=== PATIENT | female | born 2000 | race Caucasian/White ===

== ENCOUNTER 2021-06-14 12:48 | Inpatient (IN) | payer BC ==
--- OUTSIDE RECORDS SUMMARY | 2021-06-14 12:51 | XMS REPORT | Continuity of Care Document ---
:2000 Author Organization [facility] t Address [address] [place] [address] Care Team Providers Name Role Phone Pcp, Does Not Have A Primary Care Physician YADIRA Attending Clinician Unavailable Yadira ALVARENGA Attending Clinician Doctor Unassigned, Name Attending Clinician Unavailable Payers Payer Name Policy Type Policy Number Effective Date Expiration Date S ource Problems Condition Condition Condition Status Onset Resolution Last Treating Co mments Source Name Details Category Date Date Treatment Clinician Date No known No known Disease Unive rs active active ity of problems problems [facility] Allergies, Adverse Reactions, Alerts Allergy Allergy Status Severity Reaction(s) Onset Inactive Treating Comm ents Source Name Type Date Date Clinician Metronid Propensi Active Unknown - Uni vers azole ty to See comments -05 ity of adverse 00:00: [place] reaction 00 Medical s Branch Drospire Propensi Active Unknown - Uni vers none-Eth ty to See comments 01-16 it y of inyl adverse 00:00: [place] Estradio reaction 00 Medica l l s Branch METRONID DRUG Active Unknown-Cmnt 0 Un nehal AZOLE INGREDI 7-05 ity of 00:00: [place] 00 Medical Branch DROSPIRE DRUG Active Unknown-Cmnt 0 Un nehal NONE-ETH 7-05 ity of INYL 00:00: [place] ESTRADIO 00 Medical L Branch NO KNOWN Drug Active Univers ALLERGIE Class ity of S [facility] Social History Social Habit Start Date Stop Date Quantity Comments Source Exposure to Not sure [facility] SARS-CoV-2 (event) Medica l Branch Tobacco use and 2021-05-01 2021-05-01 Never used [facility] [place] exposure 00:00:00 00:00:00 Medical Branch Sex Assigned At 2000 2000 [facility] 00:00:00 00:00:00 Medical Branch Smoking Status Start Date Stop Date Source Never smoker [facility] Branch Medications Ordered Filled Start Stop Current Ordering Indication Dosage Frequency Signature Comments Components Source Medication Medication Date Date Medication? Clinician (SIG) Name Name MATA Yes Univer s 3-0.02 mg 8-26 ity of per tablet 00:00: [place] [facility] MATA, Yes Univer s 3-0.02 mg 8-26 ity of per tablet 00:00: [place] [facility] MATA, Yes Univer s 3-0.02 mg 8-26 ity of per tablet 00:00: [place] [facility] Vital Signs Vital Name Observation Time Observation Value Comments Source Systolic blood 2021-05-01 15:11:00 110 mm[facility]Hg] [facility] Diastolic blood 2021-05-01 15:11:00 73 [facility]Hg[facility] Heart rate 2021-05-01 15:11:00 79 /min [facility] Body weight 2021-05-01 15:11:00 67.132 kg [facility] Oxygen saturation 2021-05-01 15:11:00 99 /min [facility] in Arterial blood Medical Br anch by Pulse oximetry Procedures Procedure Date / Time Performing Clinician Source Performed AUTHORIZATION TO RELEASE 2021-05-01 05:01:00 Doctor Unassigned, No [facility] PHI TO [facility] Name Medical Branch Encounters Start End Encounter Admission Attending Care Care Encounter Source Date/Time Date/Time Type Type Clinicians Facility Department ID 2021-10-30 2021-10-30 Outpatient YADIRA ALCANDICE [facility] [id number] Univers 09:30:00 09:30:00 [facility] [id number] [facility] 2021-05-01 2021-05-01 Office Yadira [facility] [id number] Univers 10:00:34 11:24:57 Visit [facility] [id number] [facility] [place] [id number] [place] [id number] Al reza [address] Medical Office Building 2021-05-01 2021-05-01 Outpatient R YADIRA [facility] [id number] Univers 10:00:00 10:00:00 [facility] [id number] [facility] 2021-05-01 2021-05-01 [id number] Univers 10:00:00 10:00:00 [facility] 2021-05-01 2021-05-01 [facility] [id number] Univers 10:00:00 10:00:00 [facility] 2021-05-01 2021-05-01 Orders Doctor PORRAS [id number] Univers 00:00:00 00:00:00 Only Unassigned, ENDY [id number] [facility] [id number] [place] [id number] [address] 2021-01-16 2021-01-16 Outpatient R [facility] [id number] Univers 15:30:00 15:30:00 [id number] [facility] 2021-01-16 2021-01-16 [facility] [id number] Univers 14:30:00 14:30:00 [facility] Results This patient has no known results.
[2021-06-14 15:24] LABS: Urine Blood 2+ (Negative); Urine Glucose Negative (Negative); Urine Protein 3+ (Negative); Urine Specific Gravity >=1.030 (1.005-1.030); Urine pH 5.5 (5.0-7.0)
[2021-06-14 15:36] LABS: Urine Specific Gravity/Preg >1.030 (1.005-1.030)
[2021-06-14] MEDS ORDERED: NA CHLORIDE 0.9% 0 ML ONE (16:01)
[2021-06-14] MEDS ORDERED: NA CHLORIDE 0.9% 2,000 ML ONE (16:02)
[2021-06-14] MEDS ORDERED: CEFTRIAXONE 1000 MG/VIAL ONE (16:03)
[2021-06-14 16:37] LABS: Basophils % 0.4 % (0-1.3); Lymphocytes % 11.2 % (15.3-44.8); MPV 8.9 fL (7.6-11.3)
[2021-06-14 16:54] LABS: Albumin 3.1 g/dL (3.4-5.0); Bilirubin Total 0.4 mg/dL (0.2-1.0); Potassium 3.8 mmol/L (3.5-5.1); Protein, Total 8.1 g/dL (6.4-8.2)
--- NOTE | 2021-06-14 16:57 | RAD REPORT ---
EXAM DESCRIPTION: CT - Abdomen Pelvis W Contrast - 06/14/2021 4:47 pm CLINICAL HISTORY: Abdominal pain COMPARISON: 2015 TECHNIQUE: Computed axial tomography of the abdomen pelvis was obtained. 100 cc Isovue-300 was admin istered intravenously. Oral contrast was not requested which limits evaluation of bowel. All CT scans are performed using dose optimization technique as appropriate and may include automated exposure control or mA/KV adjustment according to patient size. FINDINGS: The liver, spleen, pancreas, adrenal and right kidney appear unremarkable. A 3.3 centimeter low to intermediate density mass is present within the mid to lower pole of the left kidney. Several smaller low-density areas are present within the left kidney extending to the periph jesus. These are compatible with infection. There is no evidence of diverticulitis. No adnexal mass. Normal appendix IMPRESSION: Moderate pyelonephritis left kidney. 3.3 centimeter lobar nephronia left kidney
--- NOTE | 2021-06-14 16:57 | RAD REPORT ---
EXAM DESCRIPTION: Kaleigh Avendaño (2 Views)06/14/2021 4:07 pm CLINICAL HISTORY: Cough COMPARISON: 2016 FINDINGS: The lungs appear clear of acute infiltrate. The heart is normal size IMPRESSION: No acute abnormalities displayed
[2021-06-14 17:37] LABS: SARS-COV-2 RT PCR NEGATIVE (NEGATIVE)
--- NOTE | 2021-06-14 17:39 | ER ---
Nurse's Notes [facility] Name: Leanne Fairchild Age: 20 yrs Sex: Female : 2000 Arrival Date: 06/14/2021 Time: 12:52 Bed 7 Private MD: Diagnosis: Pyelonephritis acute-left NEPHRONIA;Fever, unspecified Presentation: 06/14 14:07 Chief complaint: Patient states: N/V/D with L sided abd pain since S[place]. Fever up to ss 100.1 at home. Coronavirus screen: Vaccine status: Client denies travel out of the [place] in the last 14 days. diarrhea, fatigue, fever, nausea, vomiting. Client presents with at least one sign or symptom that may indicate coronavirus-19. Standard/surgical mask placed on the client. Ebola Screen: Patient denies travel to an Ebola-affected area in the 21 days before illness onset. Initial Sepsis Screen: Does the patient meet any 2 criteria? HR > 90 bpm. No. Patient's initial sepsis screen is negative. Does the patient have a suspected source of infection? Yes: Acute abdominal pain. Risk Assessment: Do you want to hurt yourself or someone else? Patient reports no desire to harm self or others. Onset of symptoms was June 11, 2021. 14:07 Method Of Arrival: Ambulatory ss 14:07 Acuity: JAQUELINE 3 ss Triage Assessment: 15:10 General: Appears in no apparent distress. uncomfortable, Behavior is cooperative, bp appropriate for age, anxious. Pain: Complains of pain in left upper quadrant and left lower quadrant. EENT: No deficits noted. Neuro: Neuro: Level of Consciousness is awake, alert, obeys commands, Oriented to Appropriate for age. Cardiovascular: Rhythm is sinus tachycardia. Respiratory: No deficits noted. GI: Reports lower abdominal pain, diarrhea, nausea, vomiting. : No signs and/or symptoms were reported regarding the genitourinary system. Derm: No deficits noted. Musculoskeletal: No deficits noted. Historical: - Allergies: 14:09 Flagyl; ss 14:09 Solu-Medrol; ss - PMHx: 14:09 thyroid problem; ss - PSHx: 14:09 None; ss - Immunization history:: Adult Immunizations up to date. - Social history:: Smoking status: . Screenin:16 Abuse screen: Denies threats or abuse. Nutritional screening: No deficits noted. tw2 Tuberculosis screening: No symptoms or risk factors identified. Fall Risk None identified. Assessment: 15:10 General: SEE TRIAGE NOTE. bp 15:10 GI: Abdomen is non-distended, Reports diarrhea, nausea, vomiting. bp 17:30 Reassessment: No changes from previously documented assessment. Patient and/or family bp updated on plan of care and expected duration. Pain level reassessed. ADMIT INITIATED. 18:30 Reassessment: No changes from previously documented assessment. Patient and/or family bp updated on plan of care and expected duration. Pain level reassessed. HOSPITALIST AT B/S. Vital Signs: 14:07 BP 119 / 70; Pulse 117; Resp 16; Temp 98.6; Pulse Ox 100% ; Weight 58.97 kg; Height 5 ss ft. 2 in. (157.48 cm); Pain 9/10; 16:27 BP 111 / 73; Pulse 106; Resp 17; Pulse Ox 100% on R/A; tw2 18:30 BP 100 / 71; Pulse 100; Resp 17; Pulse Ox 100% ; bp 14:07 Body Mass Index 23.78 (58.97 kg, 157.48 cm) ss [place] Coma Score: 15:39 Eye Response: spontaneous(4). Verbal Response: oriented(5). Motor Response: obeys sil commands(6). Total: 15. ED Course: 12:52 Patient arrived in ED. as 14:09 Triage completed. ss 14:09 Arm band placed on Patient notified of wait time. ss 15:13 Yuriy Cox, RN is Primary Nurse. bp 15:16 Son Larios MD is Attending Physician. sil 15:29 Patient has correct armband on for positive identification. Bed in low position. Call bp light in reach. Side rails up X2. 16:02 Chest Pa And Lat (2 Views) XRAY Sent. bp 16:07 Chest Pa And Lat (2 Views) XRAY In Process Unspecified. EDMS 16:35 Inserted saline lock: 20 gauge in right antecubital area, using aseptic technique. bp Blood collected. 16:47 CT Abd/Pelvis - IV Contrast Only In Process Unspecified. EDMS 17:38 Larissa Lr MD is Hospitalizing Provider. sil 19:21 No provider procedures requiring assistance completed. Patient admitted, IV remains in bp place. Administered Medications: 15:40 Drug: NS 0.9% 1000 ml Route: IV; Rate: 1 bolus; Site: right antecubital; bp 18:40 Follow up: IV Status: Completed infusion; IV Intake: 1000ml bp 15:40 Drug: Rocephin (cefTRIAXone) 1 grams Route: IV; Rate: per protocol; Site: right bp antecubital; 18:41 Follow up: IV Status: Completed infusion; IV Intake: 100ml bp 15:45 Drug: NS 0.9% 1000 ml Route: IV; Rate: 1 bolus; Site: right antecubital; bp 18:40 Follow up: IV Status: Completed infusion; IV Intake: 1000ml bp 17:50 Drug: Rocephin (cefTRIAXone) 1 grams Route: IV; Rate: per protocol; Site: right bp antecubital; 18:41 Follow up: IV Status: Completed infusion; IV Intake: 100ml bp 18:00 Drug: levofloxacin 750 mg Volume: 150 ml; Route: IVPB; Infused Over: 90 mins; Site: bp right antecubital; 19:21 Follow up: IV Status: Completed infusion; IV Intake: 150ml bp Intake: 18:40 IV: 1000ml; Total: 1000ml. bp 18:40 IV: 1000ml; Total: 2000ml. bp 18:41 IV: 100ml; Total: 2100ml. bp 18:41 IV: 100ml; Total: 2200ml. bp 19:21 IV: 150ml; Total: 2350ml. bp Outcome: 17:39 Decision to Hospitalize by Provider. sil 19:20 Admitted to Med/surg accompanied by tech, via wheelchair, room 404, with chart, Report bp called to JORGE DIOP 19:20 Condition: stable 19:20 Instructed on the need for admit. 20:52 Patient left the ED. df1 Signatures: Dispatcher [employer] EDMS Son Larios MD MD cha Martinez, Amelia as Smirch, Shelby, RN RN ss Karoline Tao RN RN tw2 Yuriy Cox RN RN Alejandra Martins df1 Corrections: (The following items were deleted from the chart) 15:29 14:10 General: Appears in no apparent distress. uncomfortable, Behavior is cooperative, bp appropriate for age, anxious, bp 15:29 14:10 Pain: Complains of pain in left upper quadrant and left lower quadrant bp bp 15:29 14:10 EENT: No deficits noted. bp bp 15:29 14:10 Neuro: bp bp 15:29 14:10 Cardiovascular: Rhythm is sinus tachycardia bp bp 15:29 14:10 Respiratory: No deficits noted. bp bp 15:29 14:10 GI: Reports lower abdominal pain, diarrhea, nausea, vomiting, bp bp 15:29 14:10 : No signs and/or symptoms were reported regarding the genitourinary system. bp bp 15:29 14:10 Derm: No deficits noted. bp bp 15:29 14:10 Musculoskeletal: No deficits noted. bp bp 16:49 16:48 Inserted saline lock: 20 gauge in right antecubital area, using aseptic bp technique. Blood collected. bp
--- NOTE | 2021-06-14 17:40 | EDPHYS ---
Physician Documentation [facility] Name: Leanne Fairchild Age: 20 yrs Sex: Female : 2000 Arrival Date: 06/14/2021 Time: 12:52 Bed 7 Private MD: ED Physician Son Larios HPI: 06/14 15:36 This 20 yrs old Female presents to ER via Ambulatory with complaints of sil Fever, Nausea/Vomiting/Diarrhea. 15:36 The patient reports fever, that was measured at 102 degrees Fahrenheit. Onset: The sil symptoms/episode began/occurred 3 day(s) ago. Modifying factors: there are no obvious modifying factors. Associated signs and symptoms: Pertinent positives: chills, cough. Severity of symptoms: At their worst the symptoms were moderate in the emergency department the symptoms are unchanged. The patient has not experienced similar symptoms in the past. Historical: - Allergies: 14:09 Flagyl; ss 14:09 Solu-Medrol; ss - PMHx: 14:09 thyroid problem; ss - PSHx: 14:09 None; ss - Immunization history:: Adult Immunizations up to date. - Social history:: Smoking status: . ROS: 15:37 Constitutional: Negative for fever, chills, and weight loss, Eyes: Negative for injury, sil pain, redness, and discharge, ENT: Negative for injury, pain, and discharge, Neck: Negative for injury, pain, and swelling, Cardiovascular: Negative for chest pain, palpitations, and edema, Respiratory: Negative for shortness of breath, cough, wheezing, and pleuritic chest pain, : Negative for injury, bleeding, discharge, and swelling, MS/Extremity: Negative for injury and deformity, Skin: Negative for injury, rash, and discoloration, Neuro: Negative for headache, weakness, numbness, tingling, and seizure, Psych: Negative for depression, anxiety, suicide ideation, homicidal ideation, and hallucinations, Allergy/Immunology: Negative for hives, rash, and allergies, Endocrine: Negative for neck swelling, polydipsia, polyuria, polyphagia, and marked weight changes, Hematologic/Lymphatic: Negative for swollen nodes, abnormal bleeding, and unusual bruising. 15:37 Abdomen/GI: Positive for abdominal pain, of the posterior aspect of left lateral abdomen, anterior aspect of left lateral abdomen, left upper quadrant and left lower quadrant. 15:37 Back: Positive for flank pain, on the left. Exam: 15:37 Constitutional: This is a well developed, well nourished patient who is awake, alert, sil and in no acute distress. Head/Face: Normocephalic, atraumatic. Eyes: Pupils equal round and reactive to light, extra-ocular motions intact. Lids and lashes normal. Conjunctiva and sclera are non-icteric and not injected. Cornea within normal limits. Periorbital areas with no swelling, redness, or edema. ENT: Nares patent. No nasal discharge, no septal abnormalities noted. Tympanic membranes are normal and external auditory canals are clear. Oropharynx with no redness, swelling, or masses, exudates, or evidence of obstruction, uvula midline. Mucous membranes moist. Neck: Trachea midline, no thyromegaly or masses palpated, and no cervical lymphadenopathy. Supple, full range of motion without nuchal rigidity, or vertebral point tenderness. No Meningismus. Chest/axilla: Normal chest wall appearance and motion. Nontender with no deformity. No lesions are appreciated. Cardiovascular: Regular rate and rhythm with a normal S1 and S2. No gallops, murmurs, or rubs. Normal PMI, no JVD. No pulse deficits. Respiratory: Lungs have equal breath sounds bilaterally, clear to auscultation and percussion. No rales, rhonchi or wheezes noted. No increased work of breathing, no retractions or nasal flaring. Skin: Warm, dry with normal turgor. Normal color with no rashes, no lesions, and no evidence of cellulitis. MS/ Extremity: Pulses equal, no cyanosis. Neurovascular intact. Full, normal range of motion. Neuro: Awake and alert, GCS 15, oriented to person, place, time, and situation. Cranial nerves II-XII grossly intact. Motor strength 5/5 in all extremities. Sensory grossly intact. Cerebellar exam normal. Normal gait. Psych: Awake, alert, with orientation to person, place and time. Behavior, mood, and affect are within normal limits. 15:37 Abdomen/GI: Inspection: abdomen appears normal, Bowel sounds: normal, Palpation: moderate abdominal tenderness, in the posterior aspect of left lateral abdomen, anterior aspect of left lateral abdomen, left upper quadrant and left lower quadrant, Liver: no appreciated palpable abnormalities, Hernia: not appreciated. Vital Signs: 14:07 BP 119 / 70; Pulse 117; Resp 16; Temp 98.6; Pulse Ox 100% ; Weight 58.97 kg; Height 5 ss ft. 2 in. (157.48 cm); Pain 9/10; 16:27 BP 111 / 73; Pulse 106; Resp 17; Pulse Ox 100% on R/A; tw2 18:30 BP 100 / 71; Pulse 100; Resp 17; Pulse Ox 100% ; bp 14:07 Body Mass Index 23.78 (58.97 kg, 157.48 cm) ss [place] Coma Score: 15:39 Eye Response: spontaneous(4). Verbal Response: oriented(5). Motor Response: obeys [facility] commands(6). Total: 15. MDM: 15:16 Patient medically screened. sil 15:39 Differential diagnosis: nephrolithiasis, pyelonephritis, UTI, diverticulitis, sil pancreatitis, viral Infection, bacterial infection, URI, bronchitis, pneumonia UTI, gastroenteritis, meningitis, otitis. Data reviewed: vital signs, nurses notes, lab test result(s), radiologic studies, CT scan, plain films. Data interpreted: nuclear monitoring technician: rate is 117 beats/min, rhythm is regular, Pulse oximetry: on room air is 100 %. Test interpretation: by ED physician or midlevel provider: plain radiologic studies. Counseling: I had a detailed discussion with the patient and/or guardian regarding: the historical points, exam findings, and any diagnostic results supporting the discharge/admit diagnosis, lab results, radiology results, the need for outpatient follow up, for definitive care, a family practitioner. 06/14 15:24 Order name: Urine Dipstick-Ancillary; Complete Time: 15:28 [facility] 06/14 15:25 Order name: Urine --Ancillary (enter results); Complete Time: 16:14 bd 06/14 15:33 Order name: CBC with Diff; Complete Time: 17:35 [facility] 06/14 15:33 Order name: Comprehensive Metabolic Panel; Complete Time: 17:35 [facility] 06/14 15:33 Order name: Blood Culture Adult (2) [facility] 06/14 15:33 Order name: Chest Pa And Lat (2 Views) XRAY; Complete Time: 17:35 [facility] 06/14 15:33 Order name: CT Abd/Pelvis - IV Contrast Only; Complete Time: 17:35 sil 06/14 16:56 Order name: COVID-19/FLU A+B/RSV EDMS Administered Medications: 15:40 Drug: NS 0.9% 1000 ml Route: IV; Rate: 1 bolus; Site: right antecubital; bp 18:40 Follow up: IV Status: Completed infusion; IV Intake: 1000ml bp 15:40 Drug: Rocephin (cefTRIAXone) 1 grams Route: IV; Rate: per protocol; Site: right bp antecubital; 18:41 Follow up: IV Status: Completed infusion; IV Intake: 100ml bp 15:45 Drug: NS 0.9% 1000 ml Route: IV; Rate: 1 bolus; Site: right antecubital; bp 18:40 Follow up: IV Status: Completed infusion; IV Intake: 1000ml bp 17:50 Drug: Rocephin (cefTRIAXone) 1 grams Route: IV; Rate: per protocol; Site: right bp antecubital; 18:41 Follow up: IV Status: Completed infusion; IV Intake: 100ml bp 18:00 Drug: levofloxacin 750 mg Volume: 150 ml; Route: IVPB; Infused Over: 90 mins; Site: bp right antecubital; 19:21 Follow up: IV Status: Completed infusion; IV Intake: 150ml bp Disposition Summary: 06/14/21 17:39 Hospitalization Ordered Hospitalization Status: Inpatient Admission sil Provider: Larissa Lr cha [facility] sil Condition: Fair sil Problem: new sil Symptoms: have improved sil Bed/Room Type: Standard [facility] Room Assignment: 404(06/14/21 19:16) eb1 Diagnosis - Pyelonephritis acute - left NEPHRONIA sil - Fever, unspecified sil Discharge Instructions: - Fever, Adult sil - Pyelonephritis, Adult sil - Pyelonephritis, Adult, Uscj-bx-Ulhs sil - Weakness sil - Weakness, Msmc-ox-Tvxo sil - Fever, Adult, Ncka-fh-Pust sil - Discharge Summary Sheet tw2 Forms: - Work release form tw2 - Medication Reconciliation Form sil - SBAR form [facility] Prescriptions: - Ibuprofen 600 mg Oral Tablet - take 1 tablet by ORAL route every 6 hours As needed take with food; 20 tablet; [facility] Refills: 0, Product Selection Permitted - Zofran 4 mg Oral Tablet - take 1 tablet by ORAL route every 12 hours As needed; 20 tablet; Refills: 0, isl Product Selection Permitted - Cipro 500 mg Oral Tablet - take 1 tablet by ORAL route every 12 hours for 7 days; 14 tablet; Refills: 0, sil Product Selection Permitted Signatures: Dispatcher [employer] EDSon Stark, Asha Lala MD, cha, RN RN Karoline Chavez, RN RN tw2 Yuriy Cox RN Leanne Cardoso RN RN eb1 Corrections: (The following items were deleted from the chart) 16:56 15:33 Influenza Screen (A \T\ B)+BA.LAB.BRZ ordered. EDMS EDMS 16:56 15:33 SARS-COV-2 RT PCR+MOL.LAB.BRZ ordered. EDMS EDMS 16:56 15:38 Respiratory Syncytial Virus Ag+BA.LAB.BRZ ordered. EDMS EDMS 19:16 17:39 sil eb1
--- NOTE | 2021-06-14 20:00 | P.HP ---
Certification for Inpatient Patient admitted to: Inpatient With expected LOS: <2 Midnights Patient will require the following post-hospital care: None Practitioner: I am a practitioner with admitting privileges, knowledge of patient current condition, hospital course, and medical plan of care. Services: Services provided to patient in accordance with Admission requirements found in Title 42 Section 412.3 of the Code of Federal Regulations Patient History Date of Service: 06/14/21 Primary Care Provider: Zulay Reason for admission: pyelonephritis History of Present Illness: Ms. Fairchild is a 20 yo F who presents with 9/10 left abdominal and flank pain beginning on Saturday. She reports fever, anorexia, decreased, fluid intake, nausea, vomiting, and diarrhea. Reports foul smelling urine for approximately 1 month. She says she holds her urine overnight because she doesn't want to get up to go the bathroom. Denies dysuria, hematuria, frequency, urgency. Na 132 AST 118 ALT 92 UA - 2+ ketones, 2+ blood, nitrite + CT AP IMPRESSION: Moderate pyelonephritis left kidney. 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 - Social History Smoking Status: Never smoker Alcohol use: No CD- Drugs: No Caffeine use: No Place of Residence: Home Review of Systems 10-point ROS is otherwise unremarkable General: Fever, Chills, Sweats, Malaise, As per HPI Eyes: Unremarkable ENT: Unremarkable Respiratory: Cough Cardiovascular: Unremarkable Gastrointestinal: Nausea, Vomiting, Abdominal Pain, Diarrhea, As per HPI Genitourinary: Unremarkable Musculoskeletal: Unremarkable Integumentary: Unremarkable Neurological: Unremarkable Lymphatics: Unremarkable Physical Examination - Physical Exam General: Alert, In no apparent distress HEENT: Atraumatic, PERRLA, Mucous membr. moist/pink, EOMI, Sclerae nonicteric Neck: Supple, 2+ carotid pulse no bruit, No LAD, Without JVD or thyroid abnormal ity Respiratory: Clear to auscultation bilaterally, Normal air movement Cardiovascular: Regular rate/rhythm (tachycardic), Normal S1 S2 Gastrointestinal: Normal bowel sounds, Tenderness Musculoskeletal: No tenderness Integumentary: No rashes Neurological: Normal speech, Normal strength at 5/5 x4 extr, Normal tone, Normal affect Lymphatics: No axilla or inguinal lymphadenopathy - Studies Laboratory Data (last 24 hrs) 06/14/21 16:20: Sodium 132 L, Potassium 3.8, BUN 8, Creatinine 0.89, Glucose 114 H, Total Bilirubin 0.4, AST 118 H, ALT 92 H, Alkaline Phosphatase 73 06/14/21 16:20: WBC 9.30, Hgb 13.5, Hct 38.0, Plt Count 156 Assessment and Plan - Problems (Diagnosis) (1) Pyelonephritis Current Visit: Yes Status: Acute (2) Dehydration Current Visit: Yes Status: Acute - Plan continue IV ceftriaxone every 12 hours continue IVF hydration advance diet as tolerated urine microscopy, urine culture, blood culture pending DVT ppx Discharge Plan: Home Plan to discharge in: 48 Hours - Advance Directives Does patient have a Living Will: No Does patient have a Durable POA for Healthcare: No - Code Status/Comfort Care Code Status Assessed: Yes (full code ) Critical Care: No Time Spent Managing Pts Care (In Minutes): 70
[2021-06-14 20:58] VITALS: O2SAT 100
[2021-06-14 22:09] VITALS: BMI 23.8
[2021-06-14] MEDS ORDERED: ACETAMINOPHEN 500 MG TAB PO PRN (22:17)
[2021-06-14] MEDS ORDERED: ONDANSETRON 4 MG/2 ML VIAL IV PRN (22:17)
[2021-06-14] MEDS ORDERED: MORPHINE 2 MG/ML SYR IV PRN (22:17)
[2021-06-14] MEDS: NA CHLORIDE 0.9% 1,000 ML IV SCH (22:17)
[2021-06-15] MEDS: NA CHLORIDE 0.9% 1,000 ML IV SCH ×3 (02:04→23:29)
[2021-06-15 03:25] LABS: Urine Appearance CLEAR (Clear); Urine Bilirubin NEGATIVE (Negative); Urine Blood 2+ (Negative); Urine Color YELLOW (Yellow); Urine Glucose NEGATIVE (Negative); Urine Protein 1+ (Negative); Urine Specific Gravity 1.015 (1.005-1.030); Urine Urobilinogen 0.2 mg/dL (0.2-1.0); Urine pH 6.5 (5.0-7.0)
[2021-06-15 03:26] LABS: Urine Microscopic Reflex ORDER UMIC
[2021-06-15 03:42] LABS: Absolute Lymphocytes (CBC) 1.3 K/uL (0.7-4.9); Basophils % 0.4 % (0-1.3); Hematocrit 32.9 % (36.0-45.0); Lymphocytes % 18.2 % (15.3-44.8); RBC Red Blood Cell Count 3.86 M/uL (3.86-4.86)
[2021-06-15 03:51] LABS: Urine Bacteria <20 /HPF (<20); Urine RBC <5 /HPF (NONE SEEN); Urine Urothelial Cells <5 /HPF (NONE SEEN)
[2021-06-15 04:14] LABS: ALT/SGPT 62 U/L (12-78); AST/SGOT 59 U/L (15-37); Albumin 2.3 g/dL (3.4-5.0); Alkaline Phosphatase 56 U/L (45-117); BUN Blood Urea Nitrogen 8 mg/dL (7-18); Bicarbonate 22 mmol/L (21-32); Bilirubin Total 0.3 mg/dL (0.2-1.0); Glucose Level 98 mg/dL (74-106); Magnesium 2.1 mg/dL (1.8-2.4); Phosphorus 1.6 mg/dL (2.5-4.9); Potassium 3.8 mmol/L (3.5-5.1); Protein, Total 6.4 g/dL (6.4-8.2); Sodium Level 134 mmol/L (136-145)
[2021-06-15] MEDS ORDERED: POTASSIUM 25 MEQ EFFERV TAB PO ONE (04:47)
[2021-06-15 07:11] LABS: Blood Morphology Comment NOT SEEN (NOT SEEN); Platelet Estimate ADEQ
[2021-06-15] MEDS ORDERED: CEFTRIAXONE 1000 MG/VIAL ONE ×2 (08:27→19:11)
[2021-06-15] MEDS ORDERED: NA CHLORIDE 0.9% 50 ML ONE ×2 (08:30→19:25)
[2021-06-15] MEDS: CEFTRIAXONE 1,000 MG in NA CHLORIDE 0.9% 50 ML IVPB SCH ×2 (08:51→20:08)
[2021-06-15] MEDS: POTASS/SODIUM PHOSPHATE 1 PKT POWD.PACK PO SCH ×2 (08:51→09:34)
[2021-06-15] MEDS: ENOXAPARIN 40 MG/0.4 ML SQ SCH (08:52)
--- NOTE | 2021-06-15 08:57 | P.PN ---
Subjective Date of Service: 06/15/21 Review of Systems 10-point ROS is otherwise unremarkable Physical Examination - Vital Signs Temperature: 98.4 F Blood Pressure: 107/66 Pulse: 102 Respirations: 16 Pulse Ox (%): 97 - Physical Exam General: Alert, In no apparent distress, Oriented x3 HEENT: Atraumatic, PERRLA, EOMI Neck: Supple, JVD not distended Respiratory: Clear to auscultation bilaterally, Normal air movement Cardiovascular: Regular rate/rhythm, Normal S1 S2 Gastrointestinal: Normal bowel sounds, Soft and benign, Non-distended, Tenderness (Left flank tenderness) Musculoskeletal: No clubbing, No swelling, No tenderness Integumentary: No rashes Neurological: Normal speech, Normal tone, Normal affect Lymphatics: No axilla or inguinal lymphadenopathy - Studies Laboratory Data (last 24 hrs) 06/14/21 16:20: Sodium 132 L, Potassium 3.8, BUN 8, Creatinine 0.89, Glucose 114 H, Total Bilirubin 0.4, AST 118 H, ALT 92 H, Alkaline Phosphatase 73 06/14/21 16:20: WBC 9.30, Hgb 13.5, Hct 38.0, Plt Count 156 Medications List Reviewed: Yes Assessment & Plan - Problems (Diagnosis) (1) Pyelonephritis of left kidney Current Visit: Yes Status: Acute - Plan 1. Continue with IV hydration 2. Continue with IV antibiotics 3. Continue with pain control 4. Diet as tolerated 5. Urology consultation; outpatient colonoscopy in 6-12 weeks 6. Monitor labs and await culture results 7. GI and DVT prophylaxis - Advance Directives Does patient have a Living Will: No Does patient have a Durable POA for Healthcare: No
[2021-06-16 07:11] LABS: BUN Blood Urea Nitrogen 7 mg/dL (7-18); Bicarbonate 24 mmol/L (21-32); Glucose Level 91 mg/dL (74-106); Magnesium 2.1 mg/dL (1.8-2.4); Phosphorus 2.8 mg/dL (2.5-4.9); Potassium 3.7 mmol/L (3.5-5.1); Sodium Level 140 mmol/L (136-145)
[2021-06-16] MEDS ORDERED: CEFTRIAXONE 1000 MG/VIAL ONE (08:07)
[2021-06-16] MEDS ORDERED: NA CHLORIDE 0.9% 50 ML ONE (08:08)
[2021-06-16 08:39] VITALS: BP 113/61; TEMP 97.9
[2021-06-16] MEDS: CEFTRIAXONE 1,000 MG in NA CHLORIDE 0.9% 50 ML IVPB SCH (08:42)
[2021-06-16] MEDS: ENOXAPARIN 40 MG/0.4 ML SQ SCH (08:44)
[2021-06-16] MEDS ORDERED: POTASSIUM CL SA 10 MEQ TAB PO ONE (09:01)
== END 2021-06-16 11:20 | disposition home or self-care (01) | DRG 690 ==
LOC: ER 12:48 → ERHOLD 18:29 → 4TH 19:21
PROVIDERS: ADMIT Hospitalist; ATTEND Hospitalist
DX: N10 Acute pyelonephritis (principal); E86.0 Dehydration; Z88.8 Allergy status to other drugs, medicaments and biological substances; Z88.1 Allergy status to other antibiotic agents; Z20.822 Contact with and (suspected) exposure to COVID-19
CPT/HCPCS: 0241U; 36415; 71046; 74177; 80048; 80053; 81003; 81015; 81025; 83735; 84100; 84439; 84443; 85025; 85652; 86140; 87040; 87086; 87088; 96365; 96366; 99285; J1650; J2405; J7030; J7040; Q9967